=== PATIENT | female | born 1940 | race Caucasian/White ===

== ENCOUNTER → 2017-01-12 | Outpatient (CLI) | payer OTHER ==
[~2017-01-12] MED LIST: ASPI1TAB2 PO; B-CO1CAP5; CALCTAB5; CHOL1000 PO; EZET10TA63 PO; HYDR25TA5; LEVO125T72 PO; LISI10TA PO; MISCCAP80; MULTCHW; RALO1TAB2
--- NOTE | 2017-01-12 11:21 | DIAGNOSTIC IMAGING REPORT ---
RIGHT HIP 2 VIEWS CLINICAL HISTORY: Right hip pain. FINDINGS: AP and frog-leg views of the right hip are obtained. No prior studies are available for comparison at the time of dictation. The skeletal structures are osteopenic. No fracture is seen in the right hip or the imaged right hemipelvis. 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 There is bony sclerosis and subchondral cyst formation noted in the femoral head. Mild sclerotic change is seen in the right sacroiliac joint. The overlying soft tissues are within normal limits. A calcified right gluteal granuloma is observed. IMPRESSION: Osteopenia with advanced arthritic change in the right hip as above. No acute bony amount is seen. Electronically signed by: Esvin Clark M.D. 01/12/2017 11:20 AM Dictated Date/Time: 01/12/2017 11:18 AM
== END | disposition home or self-care (01) ==
LOC: C.RADBC 10:33
PROVIDERS: ATTEND Physician Assistant
DX: M25.551 Pain in right hip (principal); M85.851 Other specified disorders of bone density and structure, right thigh